=== PATIENT | male | born 2000 | race African-American/Black ===

== ENCOUNTER 2021-11-06 20:59 | Emergency (ER) | payer OTHER ==
[2021-11-06 21:10] VITALS: BP 118/69; PULSE 79; TEMP 98.3; BMI 20.6
[2021-11-06] MEDS ORDERED: ACETAMINOPHEN 325 MG TABLET (FP) PO ONE (21:36)
[2021-11-06] MEDS ORDERED: ACETAMINOPHEN 325 MG TABLET (FP) ONE (21:44)
== END 2021-11-06 22:30 | disposition home or self-care (01) ==
LOC: JER 20:59
DX: R07.9 Chest pain, unspecified (principal); M25.512 Pain in left shoulder
CPT/HCPCS: 93005; 93010; 99283-25

== ENCOUNTER 2023-08-25 21:34 | Emergency (ER) | payer OTHER ==
[2023-08-25 21:38] VITALS: BP 119/68; PULSE 95; RESP 20; TEMP 98.6; BMI 25.8
[2023-08-26 02:06] LABS: BASO % 0.6 % (0-2.0); EOS % 1.2 % (0-4.5); HEMATOCRIT 43.8 % (35.4-49); HEMOGLOBIN 14.7 GM/dL (11.7-16.9); LYMPH % 31.8 % (8-40); MCH 29.2 pg (25.7-33.7); MCHC 33.6 g/dl (32.0-35.9); MEAN CELL VOLUME 86.7 fl (80-96); MEAN PLT VOLUME 9.8 fl (7.5-11.1); NEUT % 58.4 % (42.8-82.8); PLATELET COUNT 211 10^3/uL (134-434); RBC 5.05 M/mm3 (4.00-5.60); RDW 14.6 % (11.9-15.9); WHITE BLOOD COUNT 6.6 K/mm3 (4.0-10.0)
[2023-08-26 04:12] LABS: POTASSIUM 4.1 mmol/L (3.5-5.1)
[2023-08-26 04:14] LABS: ALBUMIN 3.9 g/dl (3.4-5.0); BLOOD UREA NITROGEN 11.1 mg/dL (7-18)
[2023-08-26 04:17] LABS: CREATININE 0.9 mg/dL (0.55-1.3)
[2023-08-26 04:19] LABS: BILIRUBIN,TOTAL 0.8 mg/dL (0.2-1); TOT PROT 7.5 g/dl (6.4-8.2)
[2023-08-26 04:29] LABS: CALCIUM 9.8 mg/dL (8.5-10.1)
== END 2023-08-26 04:23 | disposition home or self-care (01) ==
LOC: JER 21:34
DX: R07.89 Other chest pain (principal)
CPT/HCPCS: 36415; 71046-TC-FY; 80053; 83718; 83721; 85025; 93005; 93010; 99285-25